=== PATIENT | female | born 1955 | race Caucasian/White ===

== ENCOUNTER 2025-05-11 09:00 | Outpatient (RCR) | payer MEDICARE, SELFPAY ==
--- NOTE | 2025-03-13 14:34 | OPREHPOC ---
Outpatient Therapy Plan of Care This is a Multidisciplinary Plan of Care that may contain components documented by all disciplines (PT, OT, and ST.) PT Problem 1 PT Problem #1 Knowledge Deficit PT Goal 1 Goal / Goal Update 1. Patient will perform independent HEP 2. Patient will verbalize urge suppression strategies Target Visit 3 PT Problem 2 PT Problem #2 Impaired Strength PT Goal 1 Goal / Goal Update 1. Improve pelvic floor strength to 5/5 to reduce incontinence 2. Improve pelvic floor endurance to 8 seconds to reduce incontinence Target Visit 5 PT Problem 3 PT Problem #3 Impaired Functional ADLs PT Goal 1 Goal / Goal Update 1. Patient able to hold urge to void at least 30 minutes at all times 2. Patient will report stress incontinence no more than 1 time every 2 weeks 3. Patient will void no more than 8 times in a 24 hour period Target Visit 5
--- NOTE | 2025-03-13 14:34 | PTOPEVAL1 ---
Assessment and note entered by Colette Faye DPT Evaluation Information Assessment Status Evaluation ICD-10 Condition Codes (PT) Weakness R53.1,Stress incontinence N39.3 Subjective Information Pt reports stress incontinence with coughing or sneezing. Has been worsening over the last several years. Incontinence once a day (most of the time) . Moderate volume, enough that a pad can handle it . Would change clothes if she doesn't have a pad on. Wears pads a few days of the week especially if she going out in the community. Voiding about 10 times a day, wakes up at least twice at night. Reports just in case voiding in the morning. Can hold 15-30 minutes at the most but sometimes less . Denies pain with urination. BM 1-2 times a day. No history of significant pelvic pain. Pt has been 3 times, 3 vaginal deliveries. No tearing or complications. Has a fibroid tumor in her uterus. No b/b history. Patient returns to [facility] in 1 year. Patient goal: stop urine leaking. Reported Pain Level Pain Score 0: Self Report Assessment PT Clinical Summary The patient is presenting to skilled therapy with a history of worsening stress incontinence. She also reports increased urinary frequency and urgency. She demonstrates decreased pelvic floor strength and endurance as well as decreased core and hip strength which are contributing to her incontinence and urinary symptoms. She will benefit from therapy to address her impairments in order to restore full function and to educate in urge suppression strategies. Plan of Care Interventions Manual Therapy,Neuro Re-education,Patient/ Caregiver Education,Therapeutic Activities, Therapeutic Exercise PT Services Indicated Yes Treatment Frequency and 1 time a week for 5 visits Duration These treatments will address the objective and functional deficits as defined above. The patient will be advanced safely and appropriately in order for the patient to progress towards his/her prior level of function. Additional exercises will be introduced and as well as a comprehensive home exercise program upon discharge, if needed, ?to ensure carryover of functional gains achieved in the clinic. This treatment plan has been reviewed and agreement upon by the patient.
--- NOTE | 2025-04-13 09:42 | OPREHPOC ---
Outpatient Therapy Plan of Care This is a Multidisciplinary Plan of Care that may contain components documented by all disciplines (PT, OT, and ST.) PT Problem 1 PT Problem #1 Knowledge Deficit PT Goal 1 Goal / Goal Update 1. Patient will perform independent HEP 2. Patient will verbalize urge suppression strategies Target Visit 3 Progress Met PT Problem 2 PT Problem #2 Impaired Strength PT Goal 1 Goal / Goal Update 1. Improve pelvic floor strength to 5/5 to reduce incontinence 2. Improve pelvic floor endurance to 8 seconds to reduce incontinence update 04/13/25 1. no change 2. goal met Target Visit 5 Progress Partially Met PT Problem 3 PT Problem #3 Impaired Functional ADLs PT Goal 1 Goal / Goal Update 1. Patient able to hold urge to void at least 30 minutes at all times 2. Patient will report stress incontinence no more than 1 time every 2 weeks 3. Patient will void no more than 8 times in a 24 hour period update 04/13/25 1. met 2. 1 time per week 3. 8-10 times Target Visit 5 Progress Partially Met
--- NOTE | 2025-04-13 09:42 | PTOPPROG ---
Assessment and note entered by Colette Faye DPT Evaluation Information Assessment Status Progress ICD-10 Condition Codes (PT) Weakness R53.1,Stress incontinence N39.3 Subjective Information Pt reports she is voiding 8 times a day and 2 times at night. Incontinence 1 time in the last week, due to coughing hard. Still wearing pads out in the community. Can hold urge to void at least 30 minutes. Assessment PT Clinical Summary The patient has made good progress so far in therapy. She reports decreased frequency of incontinence to 1 time in the last week. She also reports slightly decreased urinary frequency and ability to hold urge. Her pelvic floor endurance, coordination, and hip strength have improved. Due to her progress but continued weakness and incontinence she will benefit from further therapy in order to fully return to function. Plan of Care Interventions Manual Therapy,Neuro Re-education,Patient/ Caregiver Education,Therapeutic Activities, Therapeutic Exercise PT Services Indicated Yes Treatment Frequency and 1 visit every other week x 3 visits Duration These treatments will address the objective and functional deficits as defined above. The patient will be advanced safely and appropriately in order for the patient to progress towards his/her prior level of function. Additional exercises will be introduced and as well as a comprehensive home exercise program upon discharge, if needed, ?to ensure carryover of functional gains achieved in the clinic. This treatment plan has been reviewed and agreement upon by the patient.
--- NOTE | 2025-05-11 09:42 | OPREHPOC ---
Outpatient Therapy Plan of Care This is a Multidisciplinary Plan of Care that may contain components documented by all disciplines (PT, OT, and ST.) PT Problem 1 PT Problem #1 Knowledge Deficit PT Goal 1 Goal / Goal Update 1. Patient will perform independent HEP 2. Patient will verbalize urge suppression strategies Target Visit 3 Progress Met PT Problem 2 PT Problem #2 Impaired Strength PT Goal 1 Goal / Goal Update 1. Improve pelvic floor strength to 5/5 to reduce incontinence 2. Improve pelvic floor endurance to 8 seconds to reduce incontinence update 04/13/25 1. no change 2. goal met update 05/11/25 1. not assessed Target Visit 6 Progress Partially Met PT Problem 3 PT Problem #3 Impaired Functional ADLs PT Goal 1 Goal / Goal Update 1. Patient able to hold urge to void at least 30 minutes at all times 2. Patient will report stress incontinence no more than 1 time every 2 weeks 3. Patient will void no more than 8 times in a 24 hour period update 04/13/25 1. met 2. 1 time per week 3. 8-10 times update 05/11/25 2. no change 3. no change Target Visit 6 Progress Partially Met
--- NOTE | 2025-05-11 09:43 | PTOPDC ---
Assessment and note entered by Colette Faye DPT Evaluation Information Assessment Status Discharge ICD-10 Condition Codes (PT) Weakness R53.1,Stress incontinence N39.3 Subjective Information Pt reports she had been doing well until this week , with the weather change she has been coughing more and harder which is causing some incontinence . Does think she can hold urge longer. Prior to this week incontinence was once a week when her bladder was already full and then she would cough. Wearing pads at times if she is dressed up and going out for a long time. Voiding about 8 times a day and 2 times at night. Can typically hold urge up to 30 minutes. Overall is feeling good and does not think she needs to continue therapy, will continue HEP independently. Reported Pain Level Pain Score 0: Self Report Assessment PT Clinical Summary The patient has overall made good progress in therapy. She reports improvements with urgency/ frequency and incontinence overall. Due to her progress and independence with HEP, discharge is recommended at this time. She has been educated to follow up with MD and/or PT as needed. Plan of Care PT Services Indicated No
== END 2025-05-11 11:25 | disposition home or self-care (01) ==
LOC: ANHPT 09:00
PROVIDERS: PCP Nurse Practitioner; Visit Provider Nurse Practitioner Obstetrics & Gynecology
DX: N39.3 Stress incontinence (female) (male) (principal)
CPT/HCPCS: 97112; 97161; 97530